=== PATIENT | male | born 2000 | race Caucasian/White ===

== ENCOUNTER 2019-06-19 03:18 | Emergency (ER) | payer BC ==
[~2019-06-19] VITALS: Ht 193 cm; Wt 111.4 kg
[~2019-06-19 03:18] MED LIST: CEPHALEXIN500 M1 PO; NORCO 325 MG-51 TAB PO
[2019-06-19 03:21] VITALS: BP 149/81; TEMP 98.6
[2019-06-19] MEDS ORDERED: AMOXICILLIN 50500 MG PO (03:31)
[2019-06-19 03:39] VITALS: PULSE 90
== END 2019-06-19 03:39 | disposition home or self-care (01) ==
LOC: COL.ER 03:18
DX: H66.91 Otitis media, unspecified, right ear (principal)